=== PATIENT | female | born 1960 | race American Indian/Alaskan Native ===

== ENCOUNTER 2022-05-05 20:16 | Emergency (ER) | payer OTHER, SELFPAY ==
[2022-05-06] MEDS ORDERED: SODIUM CHLORIDE 0.9% 1000 ML 1,000 ML IV ONE (00:47)
[2022-05-06] MEDS ORDERED: FAMOTIDINE 20 MG/2 ML INJ IV ONE (00:47)
[2022-05-06] MEDS ORDERED: MORPHINE 4 MG/1 ML INJ IV ONE (00:47)
[2022-05-06] MEDS ORDERED: ONDANSETRON 4 MG/2 ML INJ IV ONE ×2 (00:47→03:53)
[2022-05-06 01:32] LABS: Basophils # (Auto) 0.1 K/mm3 (0.0-0.1); Basophils % (Auto) 1.5 % (0.0-1.8); Hematocrit 41.5 % (30.3-42.9); Lymphocytes # (Auto) 1.3 K/mm3 (1.2-5.4); Lymphocytes % (Auto) 14.9 % (13.4-35.0); Mean Corpuscular HGB Conc 34 % (30-34); Mean Corpuscular Volume 91 fl (79-97); Monocytes # (Auto) 0.2 K/mm3 (0.0-0.8); Platelet Count 334 K/mm3 (140-440); Red Blood Count 4.56 M/mm3 (3.65-5.03); Red Cell Distribution Width 14.2 % (13.2-15.2)
[2022-05-06 01:33] LABS: Color,Urine Yellow (Yellow)
[2022-05-06 01:36] LABS: Bacteria,Urine 1+ /HPF (Negative); Mucus,Urine 3+ /HPF
[2022-05-06 01:47] LABS: Alanine Aminotransferase 41 units/L (7-56); Blood Urea Nitrogen 14 mg/dL (7-17); Calcium 10.4 mg/dL (8.4-10.2); Hemolysis Index 10
[2022-05-06 01:50] LABS: BUN/Creatinine Ratio 23
--- NOTE | 2022-05-06 02:58 | Cat Scan Report ---
CT ABDOMEN AND PELVIS WITH CONTRAST INDICATION / CLINICAL INFORMATION: ABDOMINAL PAIN, N/V. TECHNIQUE: Axial CT images were obtained through the abdomen and pelvis after 100 cc Omnipaque [address] scans at this location are performed using CT dose reduction for ALARA by means of automated exposure control. COMPARISON: CT abdomen and pelvis 09/01/2013 FINDINGS: LOWER CHEST: No significant abnormality of the imaged chest. Small hiatal hernia. LIVER: Small hepatic cysts. Minimal hepatic steatosis excluded. GALLBLADDER / BILE DUCTS: No significant abnormality. Biliary ducts grossly unremarkable. SPLEEN: No significant abnormality. PANCREAS: No significant abnormality. ADRENALS: No significant abnormality. KIDNEYS/URETERS: Subcentimeter hypodense lesion mid right kidney compatible with small cyst or angiom yolipoma. Lesion too small to further characterize. The kidneys otherwise demonstrate no acute findin gs. STOMACH / DUODENUM / SMALL BOWEL: The stomach, duodenum, and small bowel demonstrate no significant a bnormality. No specific abnormality of the mesentery demonstrated. COLON: Diverticulosis without acute inflammation. Moderate stool throughout the large bowel. APPENDIX: No significant abnormality. PERITONEUM: No free air or free fluid are present within the abdomen or pelvis. LYMPH NODES: No significant adenopathy. AORTA / ARTERIES: Moderate atherosclerotic calcification without acute abnormality. IVC / VEINS: No significant abnormality. URINARY BLADDER: No significant abnormality. REPRODUCTIVE ORGANS: No significant abnormality. SKELETAL SYSTEM: No significant abnormality. ADDITIONAL ABDOMINAL/PELVIC FINDINGS: None. IMPRESSION: 1. No imaging findings to suggest etiology of the provided symptoms. Signer Name: Virgilio Ca II, MD Signed: 05/06/2022 2:54 AM Workstation Name: [id number]
--- NOTE | 2022-05-06 03:49 | Emergency Department Report ---
ED N/V/D HPI - General Chief complaint: Nausea/Vomiting/Diarrhea Stated complaint: DEHYDRATED Source: patient Mode of arrival: Ambulatory Limitations: No Limitations - History of Present Illness Initial comments: Patient is a 61-year-old -[place] female with a history of A. fib who presents to the ED with complaint of acute onset persistent intractable nausea and vomiting and diffuse abdominal pain for the last 12 hours. Patient states that she has had multiple vomiting episodes and suspected that she may be dehydrated. Patient denies diarrhea, fever, chills, dizziness, syncope, lightheadedness, chest pain and shortness of breath, sore throat, low back pain, dysuria, urinary frequency and urgency or vaginal bleeding. MD complaint: nausea, vomiting, abdominal pain -: Gradual, hour(s) (12) Description of Vomiting: food contents, watery, bilious Associated Abdominal Pain: Yes (Diffuse) Location: diffuse Radiation: none Severity: moderate Pain Scale: 6 Quality: cramping, aching, sharp Consistency: constant Improves with: none Worsens with: eating, vomiting Context: possible food poisoning Associated Symptoms: denies other symptoms, loss of appetite, malaise, nausea/vomiting. denies: myalgias, chest pain, cough, diaphoresis, headaches, rash, dysuria, shortness of breath, syncope, weakness, other - Related Data Home Medications Medication Instructions Recorded Confirmed Last Taken methIMAzole [Tapazole] 5 mg PO Q12HR 09/02/13 09/02/13 Unknown propranoloL [Inderal] 20 mg PO BID 09/02/13 09/02/13 Unknown Previous Rx's Medication Instructions Recorded Last Taken Type Aspirin 325 mg PO QDAY #30 tablet 09/03/13 Unknown Rx DOXYCYCLINE Hyclate [Vibramycin 100 mg PO BID #20 capsule 09/03/13 Unknown Rx CAP] Hyoscyamine Subl [Levsin Sl] 0.125 mg PO Q6HR #20 tablet 04/12/14 Unknown Rx Potassium Chloride [K-Dur] 20 meq PO QDAY #3 tablet 04/12/14 Unknown Rx Promethazine [Phenergan] 25 mg PO Q6H PRN #25 tablet 04/12/14 Unknown Rx Sulfamethoxazole/Trimethoprim 1 each PO BID #14 tablet 04/12/14 Unknown Rx [Bactrim Ds] Dicyclomine [Bentyl] 20 mg PO Q6H PRN #30 tablet 05/06/22 Unknown Rx Famotidine [Pepcid] 20 mg PO BID #60 tablet 05/06/22 Unknown Rx Ondansetron [Zofran Odt] 4 mg PO Q6HR PRN #20 tab.rapdis 05/06/22 Unknown Rx cephALEXin [Keflex] 500 mg PO Q8HR #30 cap 05/06/22 Unknown Rx Allergies Allergy/AdvReac Type Severity Reaction Status Date / Time No Known Allergies Allergy Verified 08/31/13 22:48 ED Review of Systems ROS: Stated complaint: DEHYDRATED Other details as noted in HPI Constitutional: denies: chills, fever Eyes: denies: eye pain, eye discharge, vision change ENT: denies: ear pain, throat pain Respiratory: denies: cough, shortness of breath, wheezing Cardiovascular: denies: chest pain, palpitations Endocrine: no symptoms reported Gastrointestinal: abdominal pain, nausea, vomiting. denies: diarrhea Genitourinary: denies: urgency, dysuria, discharge Musculoskeletal: denies: back pain, joint swelling, arthralgia Skin: denies: rash, lesions Neurological: denies: headache, weakness, paresthesias Psychiatric: denies: anxiety, depression Hematological/Lymphatic: denies: easy bleeding, easy bruising ED Past Medical Hx - Past Medical History Previous Medical History?: Yes Hx Hypertension: No Hx Heart Attack/AMI: Yes (A. fib) Hx Diabetes: No Hx Deep Vein Thrombosis: No Hx Liver Disease: No Hx Asthma: No Hx COPD: No Hx HIV: No Additional medical history: Hypothyroid, atrial fibrillation - Surgical History Hx Coronary Stent: No Hx Pacemaker: No Hx Internal Defibrillator: No Additional Surgical History: c section, left leg surgery - Social History Smoking Status: Current Every Day Smoker Substance Use Type: None - Medications Home Medications: Home Medications Medication Instructions Recorded Confirmed Last Taken Type methIMAzole [Tapazole] 5 mg PO Q12HR 09/02/13 09/02/13 Unknown History propranoloL [Inderal] 20 mg PO BID 09/02/13 09/02/13 Unknown History Aspirin 325 mg PO QDAY #30 tablet 09/03/13 Unknown Rx DOXYCYCLINE Hyclate [Vibramycin 100 mg PO BID #20 capsule 09/03/13 Unknown Rx CAP] Hyoscyamine Subl [Levsin Sl] 0.125 mg PO Q6HR #20 tablet 04/12/14 Unknown Rx Potassium Chloride [K-Dur] 20 meq PO QDAY #3 tablet 04/12/14 Unknown Rx Promethazine [Phenergan] 25 mg PO Q6H PRN #25 tablet 04/12/14 Unknown Rx Sulfamethoxazole/Trimethoprim 1 each PO BID #14 tablet 04/12/14 Unknown Rx [Bactrim Ds] Dicyclomine [Bentyl] 20 mg PO Q6H PRN #30 tablet 05/06/22 Unknown Rx Famotidine [Pepcid] 20 mg PO BID #60 tablet 05/06/22 Unknown Rx Ondansetron [Zofran Odt] 4 mg PO Q6HR PRN #20 tab.rapdis 05/06/22 Unknown Rx cephALEXin [Keflex] 500 mg PO Q8HR #30 cap 05/06/22 Unknown Rx ED Physical Exam - General Limitations: No Limitations General appearance: alert, in no apparent distress - Head Head exam: Present: atraumatic, normocephalic, normal inspection - Eye Eye exam: Present: normal appearance, PERRL, EOMI Pupils: Present: normal accommodation - ENT ENT exam: Present: normal exam, normal orophraynx, mucous membranes moist, TM's normal bilaterally, normal external ear exam - Neck Neck exam: Present: normal inspection, full ROM. Absent: tenderness - Respiratory Respiratory exam: Present: normal lung sounds bilaterally. Absent: respiratory distress, wheezes, rales, rhonchi, chest wall tenderness, accessory muscle use - Cardiovascular Cardiovascular Exam: Present: regular rate, normal rhythm, normal heart sounds. Absent: systolic murmur, diastolic murmur, rubs, gallop - GI/Abdominal GI/Abdominal exam: Present: soft, tenderness (Palpable diffuse abdominal tenderness), normal bowel sounds. Absent: guarding, rebound, hyperactive bowel sounds, hypoactive bowel sounds, organomegaly, bruit - Extremities Exam Extremities exam: Present: normal inspection, full ROM, normal capillary refill. Absent: tenderness - Back Exam Back exam: Present: normal inspection, full ROM. Absent: tenderness, CVA tenderness (R), CVA tenderness (L), muscle spasm, paraspinal tenderness, vertebral tenderness - Neurological Exam Neurological exam: Present: alert, oriented X3, CN II-XII intact, normal gait, reflexes normal - Psychiatric Psychiatric exam: Present: normal affect, normal mood - Skin Skin exam: Present: warm, dry, intact, normal color. Absent: rash ED Course Vital Signs 05/05/22 21:53 Temperature 97.8 F Pulse Rate 77 Respiratory 18 Rate Blood Pressure 153/80 O2 Sat by Pulse 97 Oximetry ED Medical Decision Making - Lab Data Result diagrams: 05/06/22 00:51 05/06/22 00:51 - Radiology Data Radiology results: report reviewed, image reviewed [facility] [address] [place] [address] Cat Scan Report Signed Patient: ARISTEO RUTH MR#: [id number] : 1960 Acct:[id number] Age/Sex: 61 / F ADM Date: 05/05/22 Loc: ED Attending Dr: Ordering Physician: DENISSE MCLEOD Date of Service: 05/06/22 Procedure(s): CT abdomen pelvis w con Accession Number(s): [id number] cc: DENISSE MCLEOD CT ABDOMEN AND PELVIS WITH CONTRAST INDICATION / CLINICAL INFORMATION: ABDOMINAL PAIN, N/V. TECHNIQUE: Axial CT images were obtained through the abdomen and pelvis after 100 cc Omnipaque [address] scans at this location are performed using CT dose reduction for ALARA by means of automated exposure control. COMPARISON: CT abdomen and pelvis 09/01/2013 FINDINGS: LOWER CHEST: No significant abnormality of the imaged chest. Small hiatal hernia. LIVER: Small hepatic cysts. Minimal hepatic steatosis excluded. GALLBLADDER / BILE DUCTS: No significant abnormality. Biliary ducts grossly unremarkable. SPLEEN: No significant abnormality. PANCREAS: No significant abnormality. ADRENALS: No significant abnormality. KIDNEYS/URETERS: Subcentimeter hypodense lesion mid right kidney compatible with small cyst or angiomyolipoma. Lesion too small to further characterize. The kidneys otherwise demonstrate no acute findings. STOMACH / DUODENUM / SMALL BOWEL: The stomach, duodenum, and small bowel demonstrate no significant abnormality. No specific abnormality of the mesentery demonstrated. COLON: Diverticulosis without acute inflammation. Moderate stool throughout the large bowel. APPENDIX: No significant abnormality. PERITONEUM: No free air or free fluid are present within the abdomen or pelvis. LYMPH NODES: No significant adenopathy. AORTA / ARTERIES: Moderate atherosclerotic calcification without acute abnormality. IVC / VEINS: No significant abnormality. URINARY BLADDER: No significant abnormality. REPRODUCTIVE ORGANS: No significant abnormality. SKELETAL SYSTEM: No significant abnormality. ADDITIONAL ABDOMINAL/PELVIC FINDINGS: None. IMPRESSION: 1. No imaging findings to suggest etiology of the provided symptoms. Signer Name: Donna Cespedes II, MD Signed: 05/06/2022 2:54 AM Workstation Name: [id number] Transcribed By: ALEXIS Dictated By: DONNA CESPEDES II, MD Electronically Authenticated By: DONNA CESPEDES II, MD Signed Date/Time: 05/06/22253 DD/ 8 TD/TT: - Medical Decision Making This is a 61-year-old -[place] female with a history of A. fib who presents to the ED with complaint of acute onset persistent intractable nausea a nd vomiting and diffuse abdominal pain for the last 12 hours. Patient states that she has had multiple vomiting episodes and suspected that she may be dehydrated. In the ED, patient is alert and oriented x3 and is not in any distress. Patient was treated for pain in the ED and also given antiemetics and antacids. Patient also received normal saline 1 L IV bolus x1. All lab test results were reviewed and showed mild hypokalemia of 3.3 mmol/L and urinalysis showed urinary tract infection. Rest of the lab test results were nonactionable. Abdomen pelvis CT scan with IV contrast showed no acute abnormalities. - Differential Diagnosis Viral gastroenteritis; GERD; colitis; diverticulitis; UTI; dehydration Critical care attestation.: If time is entered above; I have spent that time in minutes in the direct care of this critically ill patient, excluding procedure time. ED Disposition Clinical Impression: Abdominal pain in female patient, Nausea and vomiting in adult patient, Viral gastroenteritis, Acute urinary tract infection Disposition: 01 HOME / SELF CARE / HOMELESS Is pt being admited?: No Does the pt Need Aspirin: No Condition: Stable Instructions: Viral Gastroenteritis, Adult, [id number], Abdominal Pain, Adult, [id number], Nausea and Vomiting, Adult, [id number], Urinary Tract Infection, Adult, [id number] Additional Instructions: All lab test results were reviewed and are all nonactionable except for urinalysis that showed urinary tract infection. Abdomen pelvis CT scan with IV contrast showed no acute abnormalities. Therefore your symptoms are likely viral in etiology, and so maintain a clear liquid diet for 12 to 24 hours, drink plenty of fluids, take medication as needed for pain and also antiemetics and a ntibiotics for urinary tract infection. Return to the ED immediately if symptoms get worse. Otherwise follow-up with your primary care physician in 7 to 10 days for reevaluation. Prescriptions: Dicyclomine [Bentyl] 20 mg PO Q6H PRN #30 tablet PRN Reason: abdominal pain cephALEXin [Keflex] 500 mg PO Q8HR #30 cap Famotidine [Pepcid] 20 mg PO BID #60 tablet Ondansetron [Zofran Odt] 4 mg PO Q6HR PRN #20 tab.rapdis PRN Reason: Nausea Referrals: [facility] [Provider Group] - 7-10 days Forms: Work/School Release Form(ED) Time of Disposition: 03:50 Print Language: GERMAN
[2022-05-06] MEDS ORDERED: KETOROLAC 30 MG/1 ML INJ IV ONE (03:53)
[2022-05-06 06:38] VITALS: BP 151/84
== END 2022-05-06 06:38 | disposition home or self-care (01) ==
LOC: ED 20:16
DX: N39.0 Urinary tract infection, site not specified (principal); A08.4 Viral intestinal infection, unspecified; R10.9 Unspecified abdominal pain; R11.2 Nausea with vomiting, unspecified; I21.9 Acute myocardial infarction, unspecified; F17.200 Nicotine dependence, unspecified, uncomplicated; Z79.899 Other long term (current) drug therapy
CPT/HCPCS: 36415; 74177; 80053; 81001; 83690; 85025; 87086; 96361; 96374; 96375; 96376; 99284; J1885; J2270; J2405; J3490; J7030; Q9967